=== PATIENT | male | born 1955 | race Caucasian/White ===

== ENCOUNTER → 2017-04-30 | Outpatient (CLI) | payer OTHER ==
[~2017-04-30] MED LIST: ALLDSR/24 PO; BUDESUS; CMD5 PO; FLVHFA110 INH; FRRS300 PO; OXYSRUNK PO; PRCUNK PO; PRLSR20 PO; SIMV20TA2 PO; [UNRECOGNIZED DRUG - OTHER]
[2017-04-30 12:32] LABS: BASO % 0.4 %; BASO ABS # 0.02 K/uL (0-0.2); COMPLETE YES; EOS % 1.3 %; HEMATOCRIT 44.7 % (42-52); IG% 0.2 %; LYMPH % 26.4 %; LYMPH ABS # 1.41 K/uL (1.2-3.4); MEAN CELL VOLUME 91.6 fL (80-100); MEAN CORPUSCULAR HEMOGLOBIN 31.4 pg (25-34); MEAN CORPUSCULAR HGB CONC 34.2 g/dl (32-36); MEAN PLATELET VOLUME 11.6 fL (7.4-10.4); MONO % 10.7 %; PLATELET COUNT 149 K/uL (130-400); RED BLOOD COUNT 4.88 M/uL (4.7-6.1); WHITE BLOOD COUNT 5.35 K/uL (4.8-10.8)
[2017-04-30 12:41] LABS: ALT/SGPT 41 U/L (12-78); BLOOD UREA NITROGEN 18 mg/dl (7-18); BUN/CREATININE RATIO 20.9 (10-20); CALCIUM 8.8 mg/dl (8.5-10.1); CARBON DIOXIDE 26 mmol/L (21-32); CHLORIDE 106 mmol/L (98-107); CHOLESTEROL 185 mg/dl (0-200); CREATININE 0.88 mg/dl (0.60-1.40); GLUCOSE 96 mg/dl (70-99); POTASSIUM 4.3 mmol/L (3.5-5.1); SODIUM 139 mmol/L (136-145)
[2017-04-30 12:46] LABS: ALKALINE PHOSPHATASE 59 U/L (45-117); AST/SGOT 27 U/L (15-37); CHOLESTEROL/HDL RATIO 3.2; HDL CHOLESTEROL 57 mg/dl; LDL CHOLESTEROL CALCULATED 114 mg/dl; PROSTATE SPECIFIC ANTIGEN 0.947 ng/ml (0.000-4.000); TRIGLYCERIDES 70 mg/dl (0-150); VERY LOW DENSITY LIPOPROT CALC 14 mg/dl
== END | disposition home or self-care (01) ==
LOC: C.LABBFT 10:53
PROVIDERS: ATTEND Internal Medicine
DX: E78.5 Hyperlipidemia, unspecified (principal); Z12.5 Encounter for screening for malignant neoplasm of prostate

== ENCOUNTER → 2018-01-05 | Outpatient (CLI) | payer OTHER ==
[~2018-01-05] MED LIST changes: +ATOR-24 PO
--- NOTE | 2018-01-05 11:20 | DIAGNOSTIC IMAGING REPORT ---
CHEST 2 VIEWS ROUTINE CLINICAL HISTORY: 62 years-old Male presenting with J45.909 Asthma. TECHNIQUE: PA and lateral views of the chest were obtained. COMPARISON: 12/11/2017. FINDINGS: Atherosclerosis of aortic arch. Cardiac silhouette mildly enlarged. Lungs and pleural spaces clear. Degenerative changes of the thoracic spine. Upper abdomen normal. IMPRESSION: 1. Mild cardiomegaly. No other convincing evidence of acute cardiopulmonary disease. Electronically signed by: Geremias Whiteside M.D. 01/05/2018 11:18 AM Dictated Date/Time: 01/05/2018 11:17 AM
[2018-01-07 12:38] LABS: QUANTIF MITOGEN-NIL 7.27 IU/ML; QUANTIFERON NEGATIVE (NEGATIVE); QUANTIFERON NIL 0.02 IU/ML
== END | disposition home or self-care (01) ==
LOC: C.RAD1850 10:41
PROVIDERS: ATTEND Physician Assistant
DX: J45.909 Unspecified asthma, uncomplicated (principal); R93.8 Abnormal findings on diagnostic imaging of other specified body structures

== ENCOUNTER → 2018-01-11 | Outpatient (CLI) | payer OTHER ==
[2018-01-11 12:18] LABS: HEMATOCRIT 45.6 % (42-52); HEMOGLOBIN 15.5 g/dL (14.0-18.0); MEAN CELL VOLUME 89.2 fL (80-100); MEAN CORPUSCULAR HEMOGLOBIN 30.3 pg (25-34); MEAN PLATELET VOLUME 11.3 fL (7.4-10.4); PLATELET COUNT 138 K/uL (130-400); RED CELL DISTRIBUTION WIDTH CV 14.6 % (11.5-14.5); RED CELL DISTRIBUTION WIDTH SD 47.4 fL (36.4-46.3); WHITE BLOOD COUNT 7.94 K/uL (4.8-10.8)
[2018-01-11 12:59] LABS: BLOOD UREA NITROGEN 25 mg/dl (7-18); CALCIUM 8.9 mg/dl (8.5-10.1); CARBON DIOXIDE 24 mmol/L (21-32); CREATININE 0.87 mg/dl (0.60-1.40); GLUCOSE 82 mg/dl (70-99); POTASSIUM 3.8 mmol/L (3.5-5.1); SODIUM 138 mmol/L (136-145)
== END | disposition home or self-care (01) ==
LOC: C.LAB1850 11:30
PROVIDERS: ATTEND Internal Medicine Clinical Cardiac Electrophysiology
DX: R00.1 Bradycardia, unspecified (principal)

== ENCOUNTER 2018-01-18 12:22 | Observation (INO) | payer OTHER ==
[~2018-01-18] VITALS: Ht 182.9 cm; Wt 77.4 kg
[~2018-01-18 12:22] MED LIST changes: -ATOR-24 PO; +CEFAZOLIN 1000MG IV PUSH 7.5 ML IV SCH; +LACTATED RINGER'S 1000ML 1,000 ML IV SCH
[2018-01-18] MEDS ORDERED: ATOR-24 PO ×2 (12:52)
[2018-01-18 13:02] VITALS: BP 145/73; PULSE 39; TEMP 36.7; O2SAT 100; BMI 24.0
--- NOTE | 2018-01-18 13:18 | History & Physical Bridge Note ---
H&P Re-Evaluation Bridge Note: I have examined the patient, reviewed the History & Physical and in the interval since the performance of the History & Physical I have noted the following changes of clinical significance: No changes noted
--- NOTE | 2018-01-18 13:19 | Pre Sedation Assessment ---
Pre Sedation Assessment General Date of Sedation: Jan 18, 2018. Vital Signs Past 12 Hours Date Time Temp Pulse Resp B/P (MAP) Pulse Ox O2 Delivery O2 Flow Rate FiO2 01/18/18 13:02 36.7 39 18 145/73 (97) 100 Room Air Review Cardiovascular: + bradycardia Lungs: lungs clear Pre-Sedation Airway Assessment Smoking Status: Former Smoker Hx of Sleep Apnea: No Short Thick Neck: No Thyro-mental Distance: > 3 Finger Breadths Oral Cavity: WNL Mallampati Classification: Class III ASA Classification: Class II NPO Status Date of Last Intake of Fluids: Jan 17, 2018 Time of Last Intake of Fluids: 1900 Date of Last Intake of Solids: Jan 17, 2018 Time of Last Intake of Solids: 1800 Procedure Planning Contraindications for Sedation: None Current Medications Reviewed: Yes Notes The planned sedation has been discussed with the patient. Informed Consent was obtained. I have identified the patient, determined the appropriateness of sedation and have assessed the patient immediately prior to the procedure. All medicine(s) and interventions are by my order.
[2018-01-18] MEDS ORDERED: BUPIVACAINE 0.25% 30 ML VIAL ONE (13:29)
[2018-01-18] MEDS ORDERED: BACITRACIN 50000 UNIT VIAL ONE (13:29)
[2018-01-18] MEDS ORDERED: LIDOCAINE HCL 1% 20 ML VIAL ONE (13:29)
[2018-01-18] MEDS ORDERED: FENTANYL CITRATE INJ 50 MCG/1 ML 2 ML VIAL ONE (13:34)
[2018-01-18] MEDS ORDERED: MIDAZOLAM HCL 5 MG/ML 1 ML VIAL ONE (13:34)
[2018-01-18] MEDS ORDERED: WATER, STERILE FOR INJ 10 ML VIAL ONE (13:46)
[2018-01-18] MEDS ORDERED: CEFAZOLIN SOD 1 GM VIAL ONE (13:46)
[2018-01-18] MEDS ORDERED: IV FLUIDS COMPLETED PRN (14:15)
--- NOTE | 2018-01-18 14:51 | [facility] Operative Report ---
Operative Report Date of Service Jan 18, 2018. Operative Report Procedure performed: Implantation of dual-chamber permanent pacemaker Staff live hanger: Eduard Garcia MD Indication: The patient is a 62-year-old gentleman with a history of symptomatic bradycardia. He was noted in the outpatient setting to have a heart rate at rest of 30 beats per minute. He was also in atrial fibrillation. He has been experiencing some exertional intolerance. As result he was felt to be a good candidate for a permanent pacemaker due to symptomatic non reversible AV node dysfunction. A dual-chamber device was selected as the patient is currently in atrial fibrillation but our intention is to cardiovert him to a sinus rhythm which to maintain AV synchrony. Procedure in detail: The patient was informed of the risks benefits and alternatives to the intended procedure and he wished to proceed. He was taken to the electrophysiology suite in a fasting state. A preoperative antibiotic had been administered. The patient was monitored electrocardiographically throughout today's procedure and conscious sedation was administered per protocol. The left upper pectoral area is prepped and draped in usual sterile fashion. This area was anesthetized using subcutaneous administration of a xylocaine solution. An incision was made at this site and carried down to the prepectoralis fascia using sharp dissection. Electrocautery was also employed for dissection as well as for hemostasis. A device pocket was fashioned tissues above the pectoralis muscle. Subsequent to this maneuver the left axillary vein was accessed using modified Seldinger technique. Sheaths were placed over guidewires at this site and used to facilitate passage of the pacing leads to the respective chambers under fluoroscopic guidance. This included right atrial and right ventricular leads. Adequate sensing and threshold parameters were obtained prior to Active fixation of the leads to the endocardial surface. The proximal portion leads were then sutured the prepectoral fascia using nonabsorbable suture. The device pocket was irrigated with antibiotic solution. The leads were then attached to the device. The device and leads were then placed in the pocket and pocket was closed in 3 layers of absorbable suture. Steri-Strips and sterile dressing were applied. The device was tested noninvasively prior to conclusion the procedure. The patient tolerated procedure well there no immediate complications. Equipment used: New pulse generator: [employer] Model number: L3-3 1 serial [id number] Right atrial lead: [employer] Model number: 7740 serial [id number] Right ventricular lead: [employer]. Model number: [id number] serial [id number] Measured data: Right atrial lead: Patient was in atrial fibrillation. Pacing impedance was 640 Ohms Right ventricular lead: R-waves measured 12.7 millivolts pacing threshold was 0.5 volts at 0.4 milliseconds with a pacing impedance of 740 Ohms Impression: Successful implantation of dual-chamber permanent pacemaker I attest to the content of the Intraoperative Record and any orders documented therein. Any exceptions are noted below.
[2018-01-18] MEDS ORDERED: IBUPROFEN 800 MG TAB PO PRN (15:00)
[2018-01-18] MEDS ORDERED: ACETAMINOPHEN 325 MG TAB PO PRN (15:00)
[2018-01-18] MEDS ORDERED: OXYCODONE HCL IR 5 MG TAB (IMMEDIATE RELEASE) PO PRN (15:00)
[2018-01-18 15:30] VITALS: BP 146/88; PULSE 70; O2SAT 96; Ht 182.9 cm; Wt 77.4 kg
[2018-01-18 16:00] VITALS: BP 137/85; PULSE 70; TEMP 36.5; O2SAT 96
[2018-01-18 17:30] VITALS: BP 145/89; PULSE 70; TEMP 36.5; O2SAT 95
[2018-01-18 18:30] VITALS: BP 142/93; PULSE 68; TEMP 36.6; O2SAT 96
[2018-01-18 19:18] VITALS: BP 132/83; PULSE 69; TEMP 36.6; O2SAT 98
[2018-01-18] MEDS: CEFAZOLIN IV 2,000 MG in SYRINGE 0 ML IV SCH (22:01)
[2018-01-19 00:15] VITALS: BP 119/73; PULSE 70; TEMP 36.7; O2SAT 98
[2018-01-19 04:15] VITALS: BP 120/80; PULSE 74; TEMP 36.8; O2SAT 97
[2018-01-19] MEDS: CEFAZOLIN IV 2,000 MG in SYRINGE 0 ML IV SCH (06:39)
[2018-01-19 06:53] VITALS: BP 114/77; PULSE 70; TEMP 36.8; O2SAT 94
--- NOTE | 2018-01-19 07:41 | DIAGNOSTIC IMAGING REPORT ---
TWO VIEW CHEST CLINICAL HISTORY: Cardiac pacemaker implantation. FINDINGS: PA and lateral chest radiographs are compared to study dated 01/05/2018. A 2-lead cardiac pacemaker has been placed and partially obscures the left upper chest. Leads project over the right atrial appendage and the right lateral ventricle. The heart is mildly enlarged and there is atherosclerotic calcification of the thoracic aorta. The pulmonary vasculature is noncongested. Chronic interstitial thickening is similar to previous. No airspace consolidation or pleural effusion is identified. There is no pneumothorax. The bony thorax appears intact. IMPRESSION: 1. A 2-lead cardiac pacemaker has been implanted as detailed above. No pneumothorax is seen post procedure. 2. Cardiomegaly without radiographic evidence of congestive failure. 3. No airspace consolidation or pleural effusion is identified. Electronically signed by: Zander Shrestha M.D. 01/19/2018 7:39 AM Dictated Date/Time: 01/19/2018 7:38 AM
[2018-01-19] MEDS ORDERED: ATORVASTATIN 40 MG TAB PO SCH (09:00)
[2018-01-19] MEDS ORDERED: PANTOprazole SOD 40 MG TAB PO SCH (09:00)
--- NOTE | 2018-01-19 09:21 | Discharge Instructions ---
Discharge Instructions Date of Service Jan 19, 2018. Admission Reason for Admission: Symptomatic Bradycardia Discharge Discharge Diagnosis / Problem: Symptomatic bradycardia Discharge Goals Goal(s): Improve function, Therapeutic intervention Activity Recommendations Activity Limitations: as noted below Lifting Limitations: no more than 25 pounds, gradually increase as tolerated Exercise/Sports Limitations: until after follow-up appointment May Resume Sexual Activity: when tolerated Shower/Bathe: keep incision dry Driving or Machine Use: resume 1 day after discharge Keep wound dry and Steri-Strips intact until follow-up visit next week. No lifting left arm above shoulder behind neck for 6 weeks. . Instructions / Follow-Up Instructions / Follow-Up Follow-up for nurse wound check next week at [facility] as previously arranged. Current Hospital Diet Patient's current hospital diet: Regular Diet Discharge Diet Recommended Diet: Regular Diet Procedures Procedures Performed: Implantation of dual-chamber [employer] pacemaker Pending Studies Studies pending at discharge: no Medical Emergencies . Who to Call and When: Medical Emergencies: If at any time you feel your situation is an emergency, please call 911 immediately. . Non-Emergent Contact Non-Emergency issues call your: Accreditation Specialist Call Non-Emergent contact if: you have a fever, your pain is not controlled, your pain is worsening . . "Provider Documentation" section prepared by Lupillo Garcia. .
[2018-01-19 09:24] VITALS: BP 114/77; PULSE 70; TEMP 36.8; O2SAT 94
--- NOTE | 2018-01-19 09:24 | Discharge Summary ---
Discharge Summary Admission Date: Jan 18, 2018 at 14:55 Discharge Date: Jan 19, 2018 Discharge Disposition: Home Primary Diagnosis: Symptomatic bradycardia, atrial fibrillation Discharge Instructions Last Recorded Wt (Kilograms): 77.400 Activity Recommendations: limitations as noted below Return to School/Work: no limitations Diet At Discharge: resume previous diet Allergies: Coded Allergies: Cefazolin (Verified Allergy, Mild, nausea/vomiting, 01/19/18) Additional Instructions: Keep wound dry and Steri-Strips intact until follow-up next week. No lifting left arm above the shoulder behind the neck for 6 weeks. Special Care: Call your doctor if: * Temperature above 101 degrees * Pain not relieved by pain medicine ordered * There is increased drainage or redness from any incision * You have any unanswered questions or concerns. Avoid all tobacco products. If you need help to stop smoking, call [place]'s FREE QUITLINE at . This is a free call. Admission HPI Patient is 62-year-old gentleman who was noted to have bradycardia. He has had some element of exercise intolerance and fatigue for few months. He is also noted to have atrial fibrillation. Based on the slow heart rate in symptoms felt to be a good candidate for permanent pacemaker. Admission Physical Exam The time of discharge the wound was clean dry and intact. There is no drainage or erythema. There is no hematoma. Hospital Course The patient underwent implantation of dual-chamber permanent pacemaker the day of admission. The procedure was uncomplicated. He did have some nausea and some vomiting potentially related to antibiotic administration over the course of his hospitalization. At the time of discharge she is feeling well and tolerated breakfast. His nausea appear to have resolved. He has minor pain at the implant site. He has been ambulatory around the room without dizziness or lightheadedness. Device interrogation was performed which revealed normal function on both leads. Chest x-ray also confirm stable lead placement in the absence of pneumothorax. Total time spent on discharge = This includes examination of the patient, discharge planning, medication reconciliation, and communication with other providers.
== END 2018-01-19 09:50 | disposition home or self-care (01) ==
LOC: C.ACU 12:22 → ENRESERV 14:11 → C.2E 14:55
PROVIDERS: ADMIT Internal Medicine Clinical Cardiac Electrophysiology; ATTEND Internal Medicine Clinical Cardiac Electrophysiology
DX: R00.1 Bradycardia, unspecified (principal); I48.91 Unspecified atrial fibrillation; E78.5 Hyperlipidemia, unspecified; J45.909 Unspecified asthma, uncomplicated; Z96.659 Presence of unspecified artificial knee joint